=== PATIENT | male | born 1980 | race Asian ===

== ENCOUNTER 2020-02-01 01:08 | Emergency (ER) | payer BC ==
[~2020-02-01] VITALS: Ht 177.8 cm; Wt 97.5 kg
[2020-02-01 01:25] VITALS: BP 132/83
--- NOTE | 2020-02-01 01:28 | NUR ---
PT TAKEN TO BED 5
[2020-02-01] MEDS ORDERED: predniSONE 20 MG TAB PO STA (01:44)
[2020-02-01] MEDS ORDERED: KETOROLAC 30 MG/ML VIAL IM ONE (01:45)
--- NOTE | 2020-02-01 02:03 | NUR ---
39 Y/O MALE PRESENTED TO ED C/O RIGHT FOOT PAIN X 1 DAY. PT STATES HE ATE BEEF AND HAD WINE YESTERDAY AND NOW IS HAVING A "GOUT FLAIR UP." PT STATES HE TOOK TYLENOL AT 1900 LAST NIGHT W/ NO RELIEF. PT DENIES N/V/D/F. OBSERVED REDNESS AND MILD SWELLING ON RIGHT FOOT. PT SITTING IN BED , LOCKED AND IN LOWEST POSITION, HOB ELEVATED, SIDE RAIL X1, VSS. PMH: HTN , GOUT RX: Colchicine ( CURRENTLY OUT OF THIS RX) , allopurinol NKA
--- NOTE | 2020-02-01 02:21 | NUR ---
Patient discharged with v/s stable. Written and verbal after care instructions given and explained. Patient alert, oriented and verbalized understanding of instructions. Ambulatory with steady gait. All questions addressed prior to discharge. ID band removed. Patient advised to follow up with PMD. Rx of PREDNISONE, COLCHICINE/PROBENECID given. Patient educated on indication of medication including possible reaction and side effects. Opportunity to ask questions provided and answered.
[2020-02-01 02:22] VITALS: BP 132/83
== END 2020-02-01 02:21 | disposition home or self-care (01) ==
LOC: MED 01:08
DX: M10.9 Gout, unspecified (principal); I10 Essential (primary) hypertension; M79.671 Pain in right foot
CPT/HCPCS: 96372; 99283; J1885; J7512

== ENCOUNTER 2020-06-16 15:04 | Emergency (ER) | payer BC ==
[~2020-06-16] VITALS: Ht 177.8 cm; Wt 97.5 kg
[2020-06-16 15:12] VITALS: BP 145/88
--- NOTE | 2020-06-16 15:17 | NUR ---
Patient ambulated to bed 6. RN evaluating the patient at bedside.
[2020-06-16] MEDS ORDERED: LIDOCAINE 2% 1000 MG/50 ML VIAL INJ ONE (15:25)
[2020-06-16] MEDS ORDERED: ACETAMINOPHEN EXTRA STRENGTH 500 MG TAB PO ONE (15:25)
[2020-06-16 16:28] VITALS: BP 145/88
== END 2020-06-16 16:29 | disposition home or self-care (01) ==
LOC: MED 15:04
DX: S71.112A Laceration without foreign body, left thigh, initial encounter (principal); I10 Essential (primary) hypertension; W19.XXXA Unspecified fall, initial encounter; Y93.89 Activity, other specified; Y92.89 Other specified places as the place of occurrence of the external cause; Y99.8 Other external cause status
CPT/HCPCS: 12002; 99283; J2001